=== PATIENT | male | born 2000 | race Caucasian/White ===

== ENCOUNTER 2021-01-05 14:58 | Outpatient (REF) | payer MEDICAID, SELFPAY ==
[2021-01-05 17:30] LABS: Bilirubin Negative (Negative); Blood Negative (Negative); Clarity Clear (Clear); Glucose Negative (Negative); Ketones Negative (Negative); Leukocyte Esterase Negative (Negative); Nitrite Negative (Negative); Specific Gravity >= 1.030 (1.005-1.025); Urobilinogen 0.2 EU/dL (Up TO 0.2); pH 5.5 (5-8)
== END 2021-01-05 14:59 | disposition home or self-care (01) ==
LOC: LBN 14:58
PROVIDERS: PCP General Practice; Visit Provider Urology
DX: N39.0 Urinary tract infection, site not specified (principal)
CPT/HCPCS: 81003; 87086

== ENCOUNTER 2021-05-12 01:31 | Outpatient (CLI) | payer MEDICAID, SELFPAY ==
[2021-05-12 12:41] LABS: ESR 1 mm/hr (0-15)
== END 2021-05-12 01:32 | disposition home or self-care (01) ==
LOC: LBO 01:31
PROVIDERS: PCP General Practice; Visit Provider Urology
DX: R19.8 Other specified symptoms and signs involving the digestive system and abdomen (principal)
CPT/HCPCS: 36415; 85652

== ENCOUNTER 2022-01-21 19:07 | Emergency (ER) | payer MEDICAID, SELFPAY ==
[2022-01-21 19:31] VITALS: BP 116/62; PULSE 62; RESP 16; TEMP 36.7; O2SAT 100
[2022-01-21 19:57] LABS: Bilirubin Negative (Negative); Blood Negative (Negative); Clarity Clear (Clear); Glucose Negative (Negative); Ketones Negative (Negative); Leukocyte Esterase Negative (Negative); Nitrite Negative (Negative); Urobilinogen 0.2 EU/dL (Up TO 0.2)
[2022-01-21] MEDS: Cephalexin 500 MG CAP PO (22:10)
--- NOTE | 2022-01-22 09:12 | W.ED.GENAD ---
Discharge Plan Disposition Patient Disposition: HOME Condition: Stable Discharge Details Clinical Impression: Urinary tract infection Primary Care Provider: Bruce Kumari ED Provider: Peace Hebert Home Meds and New Rx's Prescriptions: New cephalexin 500 mg capsule 500 mg PO BID 3 Days Qty: 6 0RF Continued lorazepam [Ativan] 0.5 mg tablet 0.5 mg PO TID PRN (Reason: anxiety) Qty: 15 0RF chondroitin sulfate-turmeric 600-125 mg tablet 1 tab PO BID Qty: 60 12RF tramadol 50 mg tablet 50 mg PO QID PRN MDD 4 Qty: 60 4RF Myrbetriq 50 mg tablet extended release 24 hr 50 mg PO DAILY Qty: 30 12RF venlafaxine 150 mg capsule,extended release 24hr 150 mg PO DAILY Qty: 30 12RF venlafaxine [Effexor XR] 37.5 mg capsule,extended release 24hr 37.5 mg PO DAILY Qty: 30 12RF Rx Instructions: take along with current 150 mg dose Discharge Instructions Instructions: Urinary Tract Infection in Men (ED) Additional Instructions: Take antibiotic as prescribed Follow-up with Dr. Davey Burciaga daily while on antibiotic Return earlier should you have new or worsening complaints Discharge Data Discharge Date/Time-TO BE ENTERED AT DEPARTURE: 01/21/22 22:14 Medical Decision Making Patient Appears Well urinalysis is clear, however patient is clearly symptomatic, low suspicion for ureterolithiasis, and states he is typically treated with antibiotics i recommended pyridium and antibiotics only with persistent symptoms, but pt prefers his typical treatments risks of antibiotic use reviewed We will give him a several day course of Keflex but expressed the need to follow-up with his urologist and pending urine culture at this time Medical Records Medical records reviewed: Yes I reviewed the patient's medical records. Lab Data Lab results reviewed: Yes I reviewed the patient's lab results. HPI General Date/Time Provider Initiated Documentation: 01/21/22 19:22. HPI Narrative: This 21-year-old male presents with dysuria, frequency, burning. Patient states that he has recurrent urinary tract infection although never tested positive on his urinalysis per patient. He denies any fever or chills. He has never been sexually active reportedly. He denies any flank pain. He denies any nausea or vomiting. His symptoms are consistent with his prior exacerbations per patient. He does follow-up with Dr. Mariscal and has had numerous outpatient diagnostic tests. He has been taking all of his previously prescribed medications as instructed Related Data Home Medications Medication Instructions Recorded Confirmed lorazepam 0.5 mg tablet (Ativan) 0.5 mg PO TID PRN anxiety #15 tabs 06/02/20 01/21/22 chondroitin sulfate 600 1 tab PO BID inflammation #60 tabs 12/10/20 01/21/22 mg-turmeric 125 mg tablet tramadol 50 mg tablet 50 mg PO QID PRN #60 tab-caps 12/10/20 01/21/22 mirabegron 50 mg tablet,extended 50 mg PO DAILY #30 tab-caps 06/14/21 01/21/22 release 24 hr (Myrbetriq) venlafaxine 150 mg 150 mg PO DAILY #30 caps 06/14/21 01/21/22 capsule,extended release 24 hr venlafaxine 37.5 mg 37.5 mg PO DAILY #30 caps 06/14/21 01/21/22 capsule,extended release 24 hr (Effexor XR) cephalexin 500 mg capsule 500 mg PO BID 3 days #6 caps 01/21/22 Previous Rx's Medication Instructions Recorded lorazepam 0.5 mg tablet (Ativan) 0.5 mg PO TID PRN anxiety #15 tabs 06/02/20 chondroitin sulfate 600 1 tab PO BID inflammation #60 tabs 12/10/20 mg-turmeric 125 mg tablet tramadol 50 mg tablet 50 mg PO QID PRN #60 tab-caps 12/10/20 mirabegron 50 mg tablet,extended 50 mg PO DAILY #30 tab-caps 06/14/21 release 24 hr (Myrbetriq) venlafaxine 150 mg 150 mg PO DAILY #30 caps 06/14/21 capsule,extended release 24 hr venlafaxine 37.5 mg 37.5 mg PO DAILY #30 caps 06/14/21 capsule,extended release 24 hr (Effexor XR) cephalexin 500 mg capsule 500 mg PO BID 3 days #6 caps 01/21/22 Allergies Allergy/AdvReac Type Severity Reaction Status Date / Time No Known Allergies Allergy Verified 06/04/21 10:43 General Stated Complaint: Urinary ALBERTO: 4 Review of Systems All systems reviewed & are unremarkable except as noted in HPI and below PFSH All Active Problems (Updated 01/21/22 @ 21:22 by MARGOT Sánchez) Urinary tract infection (Acute) 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 ESPINAL Social History Smoking/Tobacco Use Status: Never Smoking risk assessment performed?: Yes Alcohol Intake: never Drug use: Never Do you feel safe in your relationship?: Yes Exam Const General: cooperative, comfortable and no acute distress Resp Effort & Inspection: normal respiratory effort Cardio Rate: regular rate GI Other: non-tender, no cva tenderness Skin General skin exam: no rashes or lesions noted Neuro General: patient alert Course Vital Signs Vital signs: Vital Signs Temperature 36.7 C 01/21/22 19:31 Pulse 62 01/21/22 19:31 Respiratory Rate 16 01/21/22 19:31 Blood Pressure 116/62 01/21/22 19:31 Pulse Oximetry 100 01/21/22 19:31 Temperature 36.7 C 01/21/22 19:31 Temperature Source Temporal Artery Scan 01/21/22 19:31 Pulse 62 01/21/22 19:31 Respiratory Rate 16 01/21/22 19:31 Respiratory Effort 01/21/22 19:31 Blood Pressure 116/62 01/21/22 19:31 Blood Pressure Position Sitting 01/21/22 19:31 Pulse Oximetry 100 01/21/22 19:31 Oxygen Delivery Method Room Air 01/21/22 19:31 Oxygen Flow Rate 0 01/21/22 19:31 Pain Level 7 01/21/22 22:15 Lab/Test Results Lab/Test Results: Laboratory Tests Range/Units 01/21/22 19:40 Urine Color (Yellow) Yellow Urine Clarity (Clear) Clear Urine pH (5-8) 7.0 Ur Specific [place] (1.005-1.025) 1.020 Urine Protein (Negative) mg/dL Negative Urine Ketones (Negative) mg/dL Negative Urine Blood (Negative) Negative Urine Nitrite (Negative) Negative Urine Bilirubin (Negative) Negative Urine Urobilinogen (Up TO 0.2) EU/dL 0.2 Ur Leukocyte Esterase (Negative) Negative Urine Glucose (Negative) mg/dL Negative
== END 2022-01-21 22:14 | disposition home or self-care (01) ==
PROVIDERS: Physician Assistant; Emergency Provider Physician Assistant; PCP General Practice
DX: N39.0 Urinary tract infection, site not specified (principal)
CPT/HCPCS: 99283; 81003; 99284

== ENCOUNTER 2024-07-16 15:03 | Outpatient (CLI) | payer MEDICAID, SELFPAY ==
[2024-07-16 15:25] LABS: HCT 42.7 % (40.0-50.0); HGB 14.3 g/dL (13.5-17.5); MCH 30.4 pg (27.0-33.0); MCHC 33.5 % (32.0-36.0); MCV 91 fL (80-95); MPV 8.7 fL (8.0-11.0); Platelet Count 257 10^3/uL (130-400); RDW 12.3 % (11.8-14.1); RDW-SD 40.6 fL; WBC 6.78 10^3/uL (4.4-10.8)
[2024-07-16 15:50] LABS: Hemoglobin A1C 5.3 % (<5.7)
[2024-07-16 16:38] LABS: ALT 19 U/L (16-63); AST 15 U/L (15-37); Albumin 4.2 g/dL (3.4-5.0); Alkaline Phosphatase 89 U/L (46-116); Anion Gap 9.1 mmol/L (3-11); BUN 11 mg/dL (7-18); Bilirubin, Total 0.28 mg/dL (0.2-1.0); CO2 28.9 mmol/L (21.0-32.0); Calcium 9.4 mg/dL (8.5-10.1); Calculated LDL 104 mg/dL (<100); Chloride 106 mmol/L (98-107); Cholesterol 168 mg/dL (<200); Estimated GFR 107.78 (mL/min/1.73m2); Glucose 103 mg/dL (74-106); HDL Cholesterol 53 mg/dL (40-60); Potassium 3.8 mmol/L (3.5-5.1); Sodium 144 mmol/L (136-145); TSH (W/Ref FT4) 3.36 uIU/mL (0.36-3.74); Total Protein 7.6 g/dL (6.4-8.2); Triglyceride 56 mg/dL (<150)
[2024-07-17 09:35] LABS: HSV Type 1 Ab, IgG Negative (Negative); HSV Type 2 Ab, IgG Positive (Negative); Syphilis Serology (RPR) Negative (Negative)
[2024-07-17 09:40] LABS: Hepatitis C Ab w Rflx HCV PCR Negative (Negative)
[2024-07-17 09:46] LABS: HIV-1/2 Ag & Ab Screen Negative (Negative)
[2024-07-17 10:51] LABS: Hep A Total Ab w Rflx IgM Positive (Negative)
[2024-07-18 12:09] LABS: Chlamydia Result Negative (Negative); GC Result Negative (Negative)
[2024-07-18 14:34] LABS: Hep A Antibody IgM Negative (Negative)
== END 2024-07-16 15:04 | disposition home or self-care (01) ==
LOC: LBO 15:03
PROVIDERS: PCP Nurse Practitioner Family; Visit Provider Nurse Practitioner Family
DX: Z00.00 Encounter for general adult medical examination without abnormal findings (principal); Z20.2 Contact with and (suspected) exposure to infections with a predominantly sexual mode of transmission; F32.A Depression, unspecified
CPT/HCPCS: 36415; 80053; 80061; 85027; 86709; 86803; 87389; 87491; 87591; 83036; 84443; 86592; 86695; 86696

== ENCOUNTER 2024-08-16 16:20 | Emergency (ER) | payer MEDICAID, SELFPAY ==
[2024-08-16] VITALS (10 sets, daily range): BP systolic 129–136; BP diastolic 80–86; PULSE 83–92; RESP 12–26; TEMP 36.9; O2SAT 96–98
--- NOTE | 2024-08-16 16:15 | RT.EKG_ITS ---
APPROVED REPORT Exam: Resting ECG Reason for Exam: CP/SOB Patient Location: E HR:77 bpm ECG Measurements Heart Rate 77 AXIS IL 179 P -12 QRSd 98 QRS 29 QT 376 T 44 QTc 427 Conclusion Sinus rhythm...normal P axis, V-rate 60- 99 Normal Electrocardiogram
--- NOTE | 2024-08-16 16:27 | ED.GENADUL_ITS ---
Discharge Plan Disposition Patient Disposition: Home Condition: Good Discharge Details Clinical Impression: Cough Primary Care Provider: Holly Winters ED Provider: Marek Eliass and New Rx's Prescriptions: New azithromycin 250 mg tablet See Rx Instructions .ROUTE .COMPLEX Qty: 6 0RF Rx Instructions: For 250 mg dose pack: take 500 mg today (day 1), then 250 mg for 4 days (days 2-5) cetirizine-pseudoephedrine 5-120 mg tablet extended release 12 hr 1 tab PO BID Qty: 20 0RF Continued multivitamin Tablet 1 tab PO DAILY hoohzwfd-jixz-ywylx-oreg-capry 100 mg-150 mg- 50 mg-150 mg capsule 1 cap PO DAILY bupropion HCl [Wellbutrin XL] 150 mg tablet extended release 24 hr 150 mg PO QAM Qty: 90 1RF venlafaxine 37.5 mg capsule,extended release 24hr 37.5 mg PO DAILY Qty: 90 1RF lamotrigine 25 mg tablet 25 mg PO DAILY MDD 125 mg Qty: 90 1RF Rx Instructions: Take with 100 mg tab for MDD 125 mg/day lamotrigine 100 mg tablet 100 mg PO DAILY MDD 125 mg Qty: 90 1RF Rx Instructions: Take with 25 mg tab for MDD 125 mg/day tramadol 50 mg tablet 50 mg PO QID MDD 4 PRN (Reason: pain) Qty: 60 3RF Gemtesa 75 mg tablet See Rx Instructions .ROUTE .COMPLEX Qty: 90 5RF Dose Instruction: TAKE ONE TABLET BY MOUTH EVERY DAY Rx Instructions: TAKE ONE TABLET BY MOUTH EVERY DAY nystatin [Nystop] 100,000 unit/gram powder See Rx Instructions .ROUTE .COMPLEX Qty: 15 12RF Dose Instruction: APPLY TOPICALLY TO AFFECTED AREA(S) DAILY NEEDED FOR RASH Rx Instructions: APPLY TOPICALLY TO AFFECTED AREA(S) DAILY NEEDED FOR RASH Discharge Instructions Additional Instructions: You were seen in the ED for cough and congestion that has been lingering for some time with intermittent shortness of breath and chest pain. Your vital signs, exam, EKG and chest x-ray are reassuring though radiology is questioning a possible infiltrate in your left lung. Given this and your symptoms we will place you on azithromycin to cover for atypical pneumonia. Will trial you on Zyrtec-D for the congestion. You will need to follow-up with primary care in the next 1 to 2 weeks for recheck. You should return to the ED if you develop new or worsening chest pain, increasing shortness of breath, persistent fevers, other concerns. Referrals: Holly Winters NP [Primary Care Provider] - Discharge Data Discharge Date/Time-TO BE ENTERED AT DEPARTURE: 08/16/24 17:58 HPI General Mode of arrival: ambulatory . Date/Time Provider Initiated Documentation: 08/16/24 16:27 . Limitations to Documentation: no limitations . Information obtained by: patient and RN notes reviewed . HPI Narrative: Patient presents to ED with complaint of intermittent anterior chest pain, cough and congestion, occasional shortness of breath. Issues have been ongoing over the winter. States that the episodes of feeling short of breath and congested are more frequent. Also states that the episodes of chest pain seem more frequent. Denies any radiation of pain. Denies any GI symptoms. Denies any fever. He does not smoke cigarettes. He does use marijuana. Related Data Home Medications ?Medication ?Instructions ?Recorded ?Confirmed multivitamin 1 tab PO DAILY 11/28/22 08/16/24 turmeric 100 mg-lee 150 1 cap PO DAILY 11/28/22 08/16/24 mg-olive 50 mg-oreg 150 mg-capryl capsule tramadol 50 mg tablet 50 mg PO QID PRN pain #60 tabs 09/05/23 08/16/24 vibegron 75 mg tablet (Gemtesa) See Rx Instructions .Route 09/14/23 08/16/24 .COMPLEX #90 tabs nystatin 100,000 unit/gram topical See Rx Instructions .Route 03/12/24 08/16/24 powder (Nystop) .COMPLEX #15 grams bupropion HCl 150 mg 24 hr tablet, 150 mg PO QAM #90 tabs 05/06/24 08/16/24 extended release (Wellbutrin XL) lamotrigine 100 mg tablet 100 mg PO DAILY #90 tabs 05/06/24 08/16/24 lamotrigine 25 mg tablet 25 mg PO DAILY #90 tabs 05/06/24 08/16/24 venlafaxine 37.5 mg 37.5 mg PO DAILY #90 caps 05/06/24 08/16/24 capsule,extended release 24 hr azithromycin 250 mg tablet See Rx Instructions PO .COMPLEX #6 08/16/24 tabs cetirizine 5 mg-pseudoephedrine ER 1 tab PO BID #20 tabs 08/16/24 120 mg tablet,extended release,12hr Previous Rx's ?Medication ?Instructions ?Recorded tramadol 50 mg tablet 50 mg PO QID PRN pain #60 tabs 09/05/23 vibegron 75 mg tablet (Gemtesa) See Rx Instructions .Route 09/14/23 .COMPLEX #90 tabs nystatin 100,000 unit/gram topical See Rx Instructions .Route 03/12/24 powder (Nystop) .COMPLEX #15 grams bupropion HCl 150 mg 24 hr tablet, 150 mg PO QAM #90 tabs 05/06/24 extended release (Wellbutrin XL) lamotrigine 100 mg tablet 100 mg PO DAILY #90 tabs 05/06/24 lamotrigine 25 mg tablet 25 mg PO DAILY #90 tabs 05/06/24 venlafaxine 37.5 mg 37.5 mg PO DAILY #90 caps 05/06/24 capsule,extended release 24 hr azithromycin 250 mg tablet See Rx Instructions PO .COMPLEX #6 08/16/24 tabs cetirizine 5 mg-pseudoephedrine ER 1 tab PO BID #20 tabs 08/16/24 120 mg tablet,extended release,12hr Allergies Allergy/AdvReac Type Severity Reaction Status Date / Time sertraline AdvReac Mild constipatio Verified 08/16/24 16:29 n General ALBERTO: 4 Exam Narrative Exam Narrative: Const: WDWN male in NAD. VS per triage. HEENT: NC/AT. Normal facial exam. Neck: Supple. Trachea midline. Lungs: Normal respiratory effort. Lungs are clear. No chest wall tenderness. Cor: RRR without murmur. Good radial pulses. Neuro: A+O x 3. Normal speech, mentation, gait. Cranial nerves II - XII gr ossly intact. No gross motor or sensory deficit. Medical Decision Making 24-year-old male presenting to ED with complaint of intermittent episodes of chest pain, shortness of breath, cough and congestion. His exam is unremarkable. His vital signs and room air oxygenation are normal. An EKG was obtained from triage and is normal per my read. Patient feels that symptoms are happening more often. I have very little concern for this being cardiac in nature. He is very low risk for PE by Wells criteria and subsequently PERCs out. I do not think laboratory studies are necessary. Will obtain chest x-ray given complaint of cough and shortness of breath. Per my review there is no definite acute process on chest x-ray. Radiology suggest possibility of left lingular infiltrate. Given the patient's persistent symptoms will cover for atypical pneumonia with azithromycin. Will also try Zyrtec the for his congestion that he feels is sinus and nasal in nature. He does have a primary care physician that he may follow-up with in 1 to 2 weeks. Return precautions discussed. Patient discharged home. 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 ESPINAL Family History (Updated 02/29/24 @ 17:54 by Kamini Greenfield) Mother Asthma Cancer Father No problems noted. Sister Asthma Depression Brother Asthma Depression Maternal Grandmother Alcohol use disorder Depression Maternal Grandfather Colon cancer Depression Hypertension Paternal Grandmother Breast cancer Depression Social History Smoking/Tobacco Use Status: Former Tobacco Use tobacco type: cigarettes Quit Date: 07/27/22 Tobacco: How many years used: 2 Quit status: has quit before Second Hand Exposure: Yes Smoking risk assessment performed?: Yes Alcohol Intake: current Alcohol Intake frequency: a few times a week Alcohol type: hard liquor Details: 3-4 drinks on typical day Drug use: Daily Substance use type: marijuana Adopted: No Caregiver/Support person: No Household members: family Housing: house Number of Children: 0 number of grandchildren: 0 Communication Needs: Corrective Lenses Education Level: high school Do you need help understanding health information?: Rarely current occupation: Tent Pitcher Pets and animals: Yes Pets and animals: cat(s) and dog(s) Sexually active: No Do you think of yourself as: Culp Sexual Current gender identity: neither exclusively male nor female What is your relationship status?: never How often do you talk on the phone with friends or family?: once per week How often do you get together with friends or relatives?: once per week How often do you attend anglican or shinto services?: decline to answer Do you belong to any clubs or organized social groups?: no Panel score (0-1 are the most socially isolated patients): 0 What type of physical activity do you participate in: other Details: work, jogging Duration: > 90 minutes/day Frequency: 3-4 times per week Gloria/Yazidism: None Special gloria needs: No Seatbelt use: always Helmet use: Yes Helmet use: always Drive intox or ride w/intox 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
--- NOTE | 2024-08-16 16:30 | DI.RAD_ITS ---
Exam(s) XR CHEST 2V PA LATERAL EXAM: XR CHEST 2V PA LATERAL CLINICAL HISTORY: cough, CP TECHNIQUE: 2D digital imaging was performed of the chest. Two images were obtained. PA and lateral views were obtained. COMPARISON: CR CHEST 2 VIEWS PA,LAT from 02/09/2009 FINDINGS: MEDIASTINUM: Normal. HEART: Normal. PULMONARY VASCULATURE: Normal. LUNGS: There are increased lung markings in the lingula. The right lung is clear. PLEURAL SPACE: No pleural effusion or pneumothorax. BONE:Within normal limits for the patient's age. OTHER FINDINGS:Normal. IMPRESSION: Question of a left lingular infiltrate. DATA REPOSITORY: RADIATION DOSE DELIVERED:
== END 2024-08-16 17:58 | disposition home or self-care (01) ==
PROVIDERS: Emergency Provider Emergency Medicine; PCP Nurse Practitioner Family
DX: R05.1 Acute cough (principal); R07.9 Chest pain, unspecified; R06.02 Shortness of breath
CPT/HCPCS: 93005; 99284; 71046; 93010